=== PATIENT | male | born 2000 | race Caucasian/White ===

== ENCOUNTER 2021-08-14 07:37 | Emergency (ER) | payer BC, MEDICAID ==
[2021-08-14] MEDS ORDERED: Ketorolac 60 MG/2 ML SDV IM ONE (08:14)
[2021-08-14] MEDS ORDERED: Orphenadrine 100 MG Tab.ER PO STA (08:14)
== END 2021-08-14 09:10 | disposition home or self-care (01) ==
LOC: JD.ED 07:37
DX: M54.50 Low back pain, unspecified (principal); Z88.1 Allergy status to other antibiotic agents
CPT/HCPCS: 72072; 72072-26; 72100; 72100-26; 96372; 99283; A9270-GY; J1885